=== PATIENT | male | born 1970 | race Asian ===

== ENCOUNTER 2021-07-17 10:43 | Outpatient (REF) | payer OTHER, SELFPAY ==
[2021-07-17 11:02] LABS: MANUAL DIFF FLAG NO
[2021-07-17 11:18] LABS: Basophils Percent Auto 0.7 % (0-2); Eosinophils Absolute Auto 0.2 X10*3/uL (0.0-0.4); Eosinophils Percent Auto 3.9 % (0-4); Hematocrit 45.1 % (42-52); Hemoglobin 15.4 g/dl (14.0-18.0); Imm Gran Abs Auto 0.02 X10*3/uL (0.00-0.03); Imm Gran Pct Auto 0.4 % (0.0-0.4); Lymphocytes Absolute Auto 1.8 X10*3/uL (1.2-4.9); Lymphocytes Percent Auto 33.9 % (20-40); Mean Corpuscular HGB Conc 34.1 g/dl (31.0-36.0); Mean Corpuscular Hemoglobin 29.7 pg (27.0-33.0); Mean Corpuscular Volume 87.1 fL (80-98); Mean Platelet Volume 10.8 fL (9.4-12.4); Monocytes Absolute Auto 0.5 X10*3/uL (0.1-1.2); Monocytes Percent Auto 9.7 % (2-11); Neutrophils Absolute Auto 2.8 X10*3/uL (2.0-8.3); Neutrophils Percent Auto 51.4 % (45-73); Platelet Count 243 X10*3/uL (160-400); Red Blood Count 5.18 X10*6/uL (4.60-5.80); Red Cell Distribution Width 12.9 % (11.0-16.0); White Blood Count 5.4 X10*3/uL (4.8-10.8)
[2021-07-17 11:41] LABS: Estimated Average Glucose 108 mg/dL; Hemoglobin A1c % 5.4 %
[2021-07-17 12:18] LABS: Alanine Aminotransferase 24 U/L (0-40); Alkaline Phosphatase 61 U/L (39-117); Anion Gap 11 (12-20); Aspartate Amino Transferase 18 U/L (5-37); Bilirubin Total 0.6 mg/dL (0.0-1.0); Blood Urea Nitrogen 11 mg/dL (9-16); Carbon Dioxide 25 mmol/L (22-29); Chloride 108 mmol/L (96-108); Cholesterol 171 mg/dL; Estimated Glomerular Filt Rate > 60; Glucose Random 95 mg/dL (60-115); HDL Cholesterol 45 mg/dL; LDL Cholesterol Calculated 99 mg/dl; Potassium 4.7 mmol/L (3.3-5.1); Sodium 139 mmol/L (135-145); Total Protein 6.6 g/dL (6.5-8.0); Triglycerides 135 mg/dL
[2021-07-17 12:25] LABS: Free T4 (Free Thyroxine) 0.86 ng/dL (0.71-1.85); Thyroid Stimulating Hormone 1.72 uIU/mL (0.32-4.0)
[2021-07-17 12:46] LABS: Vitamin B12 363 pg/mL (200-900)
== END 2021-07-17 10:44 | disposition home or self-care (01) ==
LOC: HO.LAB 10:43
PROVIDERS: PCP Internal Medicine; Visit Provider Internal Medicine
DX: Z12.5 Encounter for screening for malignant neoplasm of prostate (principal); E66.9 Obesity, unspecified; E78.00 Pure hypercholesterolemia, unspecified
CPT/HCPCS: 36415; 80053; 80061; 82607; 82746; 83036; 84153; 84439; 84443; 85025

== ENCOUNTER → 2021-10-31 09:03 | Outpatient (BNVA) | payer OTHER, SELFPAY | PROVIDERS: PCP Internal Medicine; Referring Provider Internal Medicine; Visit Provider Nurse Practitioner Family | DX: Z12.11 Encounter for screening for malignant neoplasm of colon (principal) | CPT/HCPCS: 99202 ==

== ENCOUNTER 2022-01-16 09:57 | Day surgery (SDC) | payer OTHER, SELFPAY ==
[2022-01-10 10:24] VITALS: BMI 29.2
--- NOTE | 2022-01-15 08:59 | HO.ANESPROP2 ---
Documented by User: Yola Caal NP 01/15/22 09:00 HPI - Anesthesia Eval Consult details Narrative: 51yo M for Colonoscopy PMFSH Active Problems Active Problems: All Active Problems (Updated 10/07/21 @ 10:52 by Alejo Pineda MD) Impaired glucose tolerance (Acute) Overweight (BMI 25.0-29.9) (Acute) Lipoma (Acute) Varicose veins of bilateral lower extremities with other complications (Acute) Colon cancer screening (Acute) Annual physical exam (Acute) Past Medical History Medical History Obesity (BMI 30.0-34.9) Right knee pain Family History Family History Paternal Uncle Myocardial infarct Surgical History Surgical History Collar bone fracture History of surgery Social History Social History Housing: House Patient Tobacco Use Status: Never used Tobacco e-Cigarette/Vaping Use: Never Used Second Hand Smoke Exposure: No Use of substances other than those prescribed or required for medical reasons: No Are you DNR?: No Advance Directives: No Advance Directives Information Provided: Yes Current occupational status: employed Meds Allergies Allergy/AdvReac Type Severity Reaction Status Date / Time No Known Allergies Allergy Verified 01/15/22 12:24 Home Medications Medication Instructions Recorded Confirmed Last Taken Type stothxvi-zyi-oytym acid 300 1 tab PO DAILY 07/05/21 01/10/22 Unknown History mcg-lycopene 600 mcg-lutein 300 mcg tablet (Centrum Silver Men) Exam Exam Date and Time: January 15, 2022 0859 Height,Weight and Vital Signs: Height 5 ft 8 in Weight 87.09 kg Assessment and Plan Assessment Anesthesia Assessment: Chart Reviewed Documented by User: Yen Starkey MD 01/16/22 10:46 [facility] Past Medical History Medical History Obesity (BMI 30.0-34.9) Right knee pain Family History Family History Paternal Uncle Myocardial infarct Family history of problems with anesthesia: No Surgical History Surgical History Collar bone fracture History of surgery History of Problems with Anesthesia: No Social History Social History Housing: House Patient Tobacco Use Status: Never used Tobacco e-Cigarette/Vaping Use: Never Used Second Hand Smoke Exposure: No Use of substances other than those prescribed or required for medical reasons: No Are you DNR?: No Advance Directives: No Advance Directives Information Provided: Yes Current occupational status: employed Meds Allergies Allergy/AdvReac Type Severity Reaction Status Date / Time No Known Allergies Allergy Verified 01/15/22 12:24 Home Medications Medication Instructions Recorded Confirmed Last Taken Type yvdaijvz-stw-lsupi acid 300 1 tab PO DAILY 07/05/21 01/10/22 Unknown History mcg-lycopene 600 mcg-lutein 300 mcg tablet (Centrum Silver Men) Exam Airway Mallampati Class: II TM Dist: >3cm Neck ROM: Full Assessment and Plan Assessment Anesthesia Assessment: Anesthesia Plan Discussed Final Anesthetic Review Family History of Problems with Anesthesia: No History of Problems with Anesthesia: No NPO: Yes ASA Class: II Final Preanesthetic Review: No Changes in Pt Med Stat, Meds/Allgs Chart Reviewed, Consent Obtained/Reviewed and Anes Risks/Benef Reviewed Patient Risk: Low Procedure Risk: Low Anesthetic Plan Anesthetic Plan: MAC: Disposition: Standard PACU
[2022-01-16 10:29] VITALS: BMI 28.8
[2022-01-16 10:34] VITALS: BP 116/71; PULSE 54; RESP 16; TEMP 36.3; O2SAT 99
--- NOTE | 2022-01-16 10:36 | MHC.SHP ---
Pre-Procedural Eval Section A Date of Service: 01/16/22 Section B Chief Complaint: screening Relevant Family History (Specify if Yes): No Relevant Social History: None Present Medications: see Short Stay Collaborative assessment Medical History: Significant History (Obesity (BMI 30.0-34.9) Right knee pain) History of Previous Operations: Relevant previous surgery/procedure and date(s) (collar bone ) Allergies: Allergies Allergy/AdvReac Type Severity Reaction Status Date / Time No Known Allergies Allergy Verified 01/15/22 12:24 Review of Systems Sugical H&P ROS: Negative: Constitution, Cardiovascular, Respiratory, Neurological, Psychiatric, Hem-Onc, Allergic/Immunologic, Gastrointestinal, Genitourinary, Musculoskeletal, Integumentary, Endocrine and Eyes/Ears/Nose/Throat Exam Surgical H&P Exam: Normal: HEENT, Normal: Heart, Normal: Lungs, Normal: Extremities, Normal: Abdomen, Normal: Skin and Normal: Neurological Plan Diagnosis/Plan: Unchanged I have reviewed the history and physical and performed a pertinent physical examination on my patient. No changes have occurred unless specified.
[2022-01-16] MEDS: Lactated Ringers 1,000 ML 100 ML IVCONT (10:37)
--- NOTE | 2022-01-16 11:05 | PM.OP ---
Brief Operative Note Date of Service: 01/16/22 Pre-op diagnosis: screening colonoscopy Post-op diagnosis: same Procedure: see op note Surgeon: Dez Conteh MD Anesthesia: MAC Was an Finance Lecturer used for this Procedure?: No Estimated blood loss (mL): 0 Condition: stable Disposition: PACU
--- NOTE | 2022-01-16 11:06 | W.PM.OPN ---
Operative Note Operative Note Date of Service: 01/16/22 Narrative: Operative Information Procedure Description: Colonoscopy Indication: screening colonoscopy Anesthesia: MAC COLONOSCOPY Instrument: Olympus variable stiffness pediatric scope 190L Colonoscopy Monitoring: Vital signs and clinical assessment, continuous EKG monitoring, Pulse oximetry, Carbon Dioxide monitoring and blood pressure monitoring were done throughout the procedure. Colon withdrawal time was 8 minutes. Procedure: The patient was placed in the left lateral decubitis position and pre-procedure medications were administered. After a digital rectal examination of the ano-rectum, the video colonoscope was inserted into the rectum and advanced through the colon to the cecum/TI. The colonoscope was slowly withdrawn in a retrograde panoramic fashion and the colon mucosa was carefully examined including a retroflexed view of the rectum. Findings and interventions are described below. Procedure Difficulty: easy Findings: Terminal Ileum-normal Cecum:normal Ascending Colon: normal Transverse Colon -normal Descending Colon:normal Sigmoid Colon: 8-10 mm sessile polyp removed with cold snare Rectum: Retroflexion with small internal hemorrhoids, grade I Anorectum - normal Colon preparation: [place] Bowel Preparation Scale Right colon; 2 Transverse colon: 3 Left colon; 2 (0 = Unprepared colon segment with mucosa not seen due to solid stool that cannot be cleared. 1 = Portion of mucosa of the colon segment seen, but other areas of the colon segment not well seen due to staining, residual stool and/or opaque liquid. 2 = Minor amount of residual staining, small fragments of stool and/or opaque liquid, but mucosa of colon segment seen well. 3 = Entire mucosa of colon segment seen well with no residual staining, small fragments of stool or opaque liquid) Impression and Post Procedure Diagnosis: polyp internal hemorrhoids Plan: High fiber diet leaflet Avoid straining at stool, epsom salts and sitz bath, anusol supps or cream Repeat Colonoscopy in 5 years if adenomatous, 10 yrs if hyperplastic or earlier if clinically indicated Above findings were reviewed with the patient and relevant handouts were provided if indicated.
[2022-01-16 11:12] VITALS: BP 103/55; PULSE 68; RESP 18; TEMP 36.1; O2SAT 100
[2022-01-16 11:27] VITALS: BP 105/64; PULSE 66; RESP 18; O2SAT 100
[2022-01-16 11:43] VITALS: BP 116/79; PULSE 51; RESP 16; TEMP 36.1; O2SAT 100
== END 2022-01-16 12:09 | disposition home or self-care (01) ==
PROVIDERS: PCP Internal Medicine; Visit Provider Internal Medicine Gastroenterology
PROC: 0DJD8ZZ Inspection of Lower Intestinal Tract, Via Natural or Artificial Opening Endoscopic (ICD-10-PCS; CPT 45378; principal; 2022-01-16 11:00)
DX: Z12.11 Encounter for screening for malignant neoplasm of colon (principal); D12.5 Benign neoplasm of sigmoid colon; K64.0 First degree hemorrhoids; E66.9 Obesity, unspecified; Z68.29 Body mass index [BMI] 29.0-29.9, adult; Z98.890 Other specified postprocedural states
CPT/HCPCS: 45385; 88305

== ENCOUNTER 2022-07-11 11:19 | Outpatient (REF) | payer OTHER, SELFPAY ==
--- NOTE | ~2022-07-11 | XR_ITS ---
EXAMINATION: XR KNEE, LEFT CLINICAL INFORMATION: Pain left knee. M25.562. COMPARISON: Standing AP bilateral knees 01/14/2018, left knee radiographs 06/17/2013. TECHNIQUE: Standing AP and lateral views of the left knee are obtained. FINDINGS: There is small to moderate suprapatellar effusion. Hoffa's fat pad appears normal. No fracture, dislocation, or destructive process. No focal joint narrowing or erosive change or chondrocalcinosis. XR/XR knee LT 2V IMPRESSION: -Small to moderate suprapatellar effusion. -No joint narrowing or erosive change. No fracture or dislocation.
[2022-07-11 11:54] LABS: MANUAL DIFF FLAG NO
[2022-07-11 12:55] LABS: Basophils Absolute Auto 0.1 X10*3/uL (0.0-0.2); Basophils Percent Auto 0.8 % (0-2); Eosinophils Absolute Auto 0.2 X10*3/uL (0.0-0.4); Eosinophils Percent Auto 2.8 % (0-4); Hematocrit 49.2 % (42.0-52.0); Hemoglobin 16.2 g/dl (14.0-18.0); Imm Gran Abs Auto 0.07 X10*3/uL (0.00-0.03); Imm Gran Pct Auto 1.2 % (0.0-0.4); Lymphocytes Absolute Auto 2.1 X10*3/uL (1.2-4.9); Lymphocytes Percent Auto 35.8 % (20-40); Mean Corpuscular HGB Conc 32.9 g/dl (31.0-36.0); Mean Corpuscular Hemoglobin 28.4 pg (27.0-33.0); Mean Corpuscular Volume 86.2 fL (80.0-98.0); Mean Platelet Volume 11.3 fL (9.4-12.4); Monocytes Absolute Auto 0.5 X10*3/uL (0.1-1.2); Monocytes Percent Auto 8.5 % (2-11); Neutrophils Percent Auto 50.9 % (45-73); Platelet Count 232 X10*3/uL (160-400); Red Blood Count 5.71 X10*6/uL (4.60-5.80); Red Cell Distribution Width 13.3 % (11.0-16.0)
[2022-07-11 13:27] LABS: Alanine Aminotransferase 26 U/L (0-40); Albumin Level 4.4 g/dL (3.5-5.0); Alkaline Phosphatase 72 U/L (39-117); Anion Gap 14 (12-20); Aspartate Amino Transferase 22 U/L (5-37); Bilirubin Total 0.4 mg/dL (0.0-1.0); Blood Urea Nitrogen 11 mg/dL (9-16); Calcium 9.3 mg/dL (8.4-10.2); Carbon Dioxide 28 mmol/L (22-29); Chloride 104 mmol/L (96-108); Cholesterol 188 mg/dL; Estimated Glomerular Filt Rate > 60; Glucose Random 90 mg/dL (60-115); HDL Cholesterol 57 mg/dL; LDL Cholesterol Calculated 111 mg/dl; Sodium 141 mmol/L (135-145); Total Protein 7.4 g/dL (6.5-8.0); Triglycerides 101 mg/dL
[2022-07-11 13:40] LABS: Thyroid Stimulating Hormone 1.36 uIU/mL (0.32-4.0)
[2022-07-11 13:56] LABS: Folate 16.4 ng/mL (> or = 4.0); Vitamin B12 480 pg/mL (200-900)
== END 2022-07-11 11:20 | disposition home or self-care (01) ==
LOC: HO.XRAY 11:19
PROVIDERS: PCP Internal Medicine; Visit Provider Internal Medicine
DX: M25.562 Pain in left knee (principal); R73.02 Impaired glucose tolerance (oral); E78.00 Pure hypercholesterolemia, unspecified
CPT/HCPCS: 36415; 73560; 80053; 80061; 82607; 82746; 84153; 84443; 85025

== ENCOUNTER → 2022-07-25 08:50 | Outpatient (BNVA) | payer OTHER, SELFPAY | PROVIDERS: PCP Internal Medicine; Visit Provider Surgery | DX: K42.9 Umbilical hernia without obstruction or gangrene (principal); Z72.0 Tobacco use | CPT/HCPCS: 99202 ==

== ENCOUNTER → 2022-08-06 13:12 | Outpatient (BNVA) | payer OTHER, SELFPAY | PROVIDERS: PCP Internal Medicine; Visit Provider Surgery | DX: K42.9 Umbilical hernia without obstruction or gangrene (principal); E66.3 Overweight; Z72.0 Tobacco use; R73.02 Impaired glucose tolerance (oral); Z68.30 Body mass index [BMI] 30.0-30.9, adult | CPT/HCPCS: 99212 ==

== ENCOUNTER 2022-09-04 07:31 | Day surgery (SDC) | payer OTHER, SELFPAY ==
[2022-08-27 13:26] VITALS: BMI 30.7
--- NOTE | 2022-09-03 09:39 | P.CONAN_ITS ---
Documented by User: Yola Caal NP 09/03/22 09:41 HPI - Anesthesia Eval Consult details Narrative: 52yo M for Hernia Repair Umbilical, possible mesh,possible umbilectomy s/p colo 01/2022 with MAC [facility] Active Problems Active Problems: All Active Problems (Updated 07/11/22 @ 11:00 by Alejo Pineda MD) Tinea pedis (Acute) Knee pain, left (Acute) Thrombophlebitis of leg (Acute) Umbilical hernia (Acute) Chews tobacco (Acute) Tubular adenoma of colon (Acute) Impaired glucose tolerance (Acute) Overweight (BMI 25.0-29.9) (Acute) Lipoma (Acute) Varicose veins of bilateral lower extremities with other complications (Acute) Annual physical exam (Acute) Past Medical History Medical History Colon cancer screening Obesity (BMI 30.0-34.9) Right knee pain Family History Family History Paternal Uncle Myocardial infarct Family history of problems with anesthesia: No Surgical History Surgical History Collar bone fracture History of surgery Hx of colonoscopy History of Problems with Anesthesia: No Social History Social History Housing: House Alcohol intake: current Patient Tobacco Use Status: Never used Tobacco Years Smoked: chews tobacco e-Cigarette/Vaping Use: Never Used Second Hand Smoke Exposure: No Use of substances other than those prescribed or required for medical reasons: No Are you DNR?: No Advance Directives: No Advance Directives Information Provided: Yes Current occupational status: employed Cognitive needs: No Hearing needs: No Vision needs: Yes Meds Allergies Allergy/AdvReac Type Severity Reaction Status Date / Time No Known Allergies Allergy Verified 08/27/22 12:51 Home Medications Medication Instructions Recorded Confirmed Last Taken Type spczvwat-dox-ceged acid 300 1 tab PO DAILY 07/05/21 08/27/22 Unknown History mcg-lycopene 600 mcg-lutein 300 mcg tablet (Centrum Silver Men) Exam Exam Date and Time: September 03, 2022 0939 Height,Weight and Vital Signs: Height 5 ft 8 in Weight 91.626 kg Pertinent Lab Results Pertinent Lab Results: Laboratory Tests 07/11/22 07/11/22 11:53 11:53 WBC 6.0 Hgb 16.2 Hct 49.2 Plt Count 232 Sodium 141 Potassium 5.0 Chloride 104 Carbon Dioxide 28 BUN 11 Creatinine 0.91 Assessment and Plan Assessment Anesthesia Assessment: Chart Reviewed Final Anesthetic Review Family History of Problems with Anesthesia: No History of Problems with Anesthesia: No Documented by User: Julia Agudelo MD 09/04/22 09:22 [facility] Past Medical History Medical History Colon cancer screening Obesity (BMI 30.0-34.9) Right knee pain Functional capacity: independent ambulation Family History Family History Paternal Uncle Myocardial infarct Surgical History Surgical History Collar bone fracture History of surgery Hx of colonoscopy Social History Social History Housing: House Alcohol intake: current Patient Tobacco Use Status: Never used Tobacco Years Smoked: chews tobacco e-Cigarette/Vaping Use: Never Used Second Hand Smoke Exposure: No Use of substances other than those prescribed or required for medical reasons: No Are you DNR?: No Advance Directives: No Advance Directives Information Provided: Yes Current occupational status: employed Cognitive needs: No Hearing needs: No Vision needs: Yes Meds Allergies Allergy/AdvReac Type Severity Reaction Status Date / Time No Known Allergies Allergy Verified 08/27/22 12:51 Home Medications Medication Instructions Recorded Confirmed Last Taken Type sbuvaspp-anc-vqktz acid 300 1 tab PO DAILY 07/05/21 08/27/22 Unknown History mcg-lycopene 600 mcg-lutein 300 mcg tablet (Centrum Silver Men) Exam Airway Mallampati Class: II TM Dist: >3cm Neck ROM: Full Assessment and Plan Assessment Anesthesia Assessment: Anesthesia Plan Discussed Final Anesthetic Review ASA Class: II Final Preanesthetic Review: No Changes in Pt Med Stat, Meds/Allgs Chart Reviewed and Consent Obtained/Reviewed Patient Risk: Low Procedure Risk: Intermediate Anesthetic Plan Anesthetic Plan: GA Disposition: Standard PACU
[2022-09-04] VITALS (7 sets, daily range): BP systolic 101–129; BP diastolic 72–89; PULSE 68–84; RESP 11–16; TEMP 35.9–36.3; O2SAT 96–98; BMI 27.5
[2022-09-04] MEDS: Lactated Ringers 1,000 ML 100 ML IVCONT (08:09)
--- NOTE | 2022-09-04 08:19 | MHC.SHP ---
Pre-Procedural Eval Section A Date of Service: 09/04/22 The patient is an INPATIENT: No The History & Physical has been completed within 30 days and I have reviewed it.: Yes Section B Chief Complaint: Umbilical hernia without obstruction or gangrene Allergies: Allergies Allergy/AdvReac Type Severity Reaction Status Date / Time No Known Allergies Allergy Verified 08/27/22 12:51 Plan I have reviewed the history and physical and performed a pertinent physical examination on my patient. No changes have occurred unless specified.
--- NOTE | 2022-09-04 09:13 | P.OP_ITS ---
Operative Note Operative Note Date of Service: 09/04/22 Narrative: Preop diagnosis: [Umbilical hernia] Postop diagnosis: [Same] Procedure: [Open umbilical hernia repair] Surgeon: Monty Amor MD Assist: [] Anesthesia: [general via LMA, local of Marcaine, 0.5% with epi] Estimated blood loss: [3cc] Specimen: [None] Intraoperative findings: [Viable properitoneal fat was demonstrated through a 2.5 cm umbilical ring that was closed primarily and onlay mesh of polypropylene completed the repair.] Indications: [The patient is a 52-year-old gentleman with a symptomatic umbilical hernia that is reducible. He works in a liquor store and since the hernia is symptomatic, we discussed the option of continued observation versus repair. He believes it to be significant enough that he wishes to have repair. Consequently, we discussed an open umbilical hernia repair, possibly with mesh and possible umbilectomy if the skin is attenuated and needs to be removed. I reviewed the inherent risks of bleeding, infection, hernia recurrence especially in the setting of weight gain, mesh complications that could require another procedure removal of the mesh, activity restrictions for a month after surgery, urinary retention and the patient seemed understand his options and wanted to proceed. The option of an oxygen equipment technician and his prairie band language was offered but declined by the patient. The patient seemed understand all of his options and postoperative restrictions and wanted to proceed. ] Procedure: [The patient was identified by myself in the preoperative holding area and again in the operating room. He was placed supine on the table, his abdominal hair had previously been clipped in day surgery, he was induced in general endotracheal anesthesia by LMA was performed. His abdomen was then widely prepped and draped using ChloraPrep. An appropriate time-out was per formed and preemptive local infiltrated into the skin and subcutaneous tissues. Next, a curvilinear infraumbilical incision was made sharply and dissection of the hernia was performed taking care to avoid trauma to the umbilical skin. The umbilical ring was approximately 2.5 cm in diameter and viable properitoneal fat was contained and reduced. Fascial margins were freshened and a primary closure performed with 0 polypropylene suture and polypropylene mesh repair with onlay technique was performed using 0 polypropylene sutures. After inspecting for hemostasis, additional local was infiltrated in the skin and subcutaneous tissues and the subcutaneous tissues were approximated with 3-0 Polysorb. Skin was closed with 4-0 Monocryl subcuticular sutures, the abdomen washed and dried, Mastisol and Steri-Strips applied. A cotton ball was placed in the umbilicus, and a Tegaderm was placed over the dressing. Patient tolerated the procedure well. At his request, I contacted his family member at [phone], but no one answered. A message stating that the procedure went well and that someone would be in touch within an hour to 90 minutes was left.]
== END 2022-09-04 12:32 | disposition home or self-care (01) ==
PROVIDERS: PCP Internal Medicine; Visit Provider Surgery
PROC: (CPT 49585; principal; 2022-09-04 09:10)
DX: K42.9 Umbilical hernia without obstruction or gangrene (principal); R73.02 Impaired glucose tolerance (oral); E66.3 Overweight; Z68.29 Body mass index [BMI] 29.0-29.9, adult; I83.12 Varicose veins of left lower extremity with inflammation; Z72.0 Tobacco use
CPT/HCPCS: 49585; 99212; C1781; J0690; J1100; J2250; J2405; J3010

== ENCOUNTER → 2022-10-10 09:25 | Outpatient (BNVA) | payer OTHER, SELFPAY | PROVIDERS: PCP Internal Medicine; Visit Provider Surgery | DX: Z13.89 Encounter for screening for other disorder (principal) ==

== ENCOUNTER 2022-10-17 10:32 | Outpatient (REF) | payer OTHER, SELFPAY ==
--- NOTE | ~2022-10-17 | US_ITS ---
EXAMINATION: US LOWER EXTREMITY VENOUS (REFLUX EXAM), BILATERAL CLINICAL INDICATION: Varicose vein COMPARISON: None. TECHNIQUE: Color flow triplex imaging and compression Doppler was performed to evaluate both the deep and the superficial systems bilaterally. To evaluate the superficial system, the examination was performed in the upright position. Color-flow Doppler ultrasound and compression ultrasound were utilized. In addition, maneuvers were utilized to demonstrate reflux. FINDINGS: 1. DEEP VENOUS ULTRASOUND OF THE RIGHT LOWER EXTREMITY: Common Femoral Vein: Compressible, normal respiratory variation and augmented flow. Femoral Vein: Compressible, normal color flow and augmentation. Popliteal Vein: Compressible, normal augmentation. Deep Reflux: There is no evidence of reflux in the deep system in either the common femoral vein or the popliteal vein. There is no evidence of a Quarles's cyst. 2. SUPERFICIAL ULTRASOUND WITH DOPPLER OF RIGHT LOWER EXTREMITY: GREAT SAPHENOUS VEIN: Saphenofemoral Junction: 0.9 cm; Reflux: 0 ms Proximal Thigh: 0.6 cm; Reflux: 0 ms Mid Thigh: 0.3 cm; Reflux: 0 ms Above Knee: 0.3 cm; Reflux: 0 ms At Knee: 0.3 cm; Reflux: 0 ms Below Knee: 0.3 cm; Reflux: 0 ms Mid Calf: 0.4 cm; Reflux: 0 ms Ankle: 0.4 cm; Reflux: 2016 ms DUPLICATED MEDIAL GREAT SAPHENOUS VEIN: Diameter: None Imaged Reflux: NA DUPLICATED LATERAL GREAT SAPHENOUS VEIN: Proximal: 0.3 cm; Reflux: 0 ms Distal: 0.2 cm; Reflux: 0 ms SMALL SAPHENOUS VEIN: Proximal: 0.2 cm; Reflux: 0 ms Distal: 0.3 cm; Reflux: 0 ms VEIN OF GIACOMINI: None Imaged. PERFORATORS: Location: Mid thigh Size: And proximal calf 0.2 cm Reflux: NA VARICOSITIES: Location: Proximal calf Size: 0.4 cm Reflux: 1236 3. DEEP VENOUS ULTRASOUND OF THE LEFT LOWER EXTREMITY: Common Femoral Vein: Compressible, normal respiratory variation and augmented flow. Femoral Vein: Compressible, normal color flow and augmentation. Popliteal Vein: Compressible, normal augmentation. Deep Reflux: There is no evidence of reflux in the deep system in either the common femoral vein or the popliteal vein. There is no evidence of a Quarles's cyst. 4. SUPERFICIAL ULTRASOUND WITH DOPPLER OF LEFT LOWER EXTREMITY: GREAT SAPHENOUS VEIN: Saphenofemoral Junction: 0.7 cm; Reflux: 0 ms Proximal Thigh: 0.6 cm; Reflux: 0 ms Mid Thigh: 0.5 cm; Reflux: 2932 ms Above Knee: 0.4 cm; Reflux: 0 ms At Knee: 0.5 cm; Reflux: 692 ms Below Knee: 0.5 cm; Reflux: 2024 ms Mid Calf: 0.4 cm; Reflux: 0 ms Ankle: 0.4 cm; Reflux: 0 ms DUPLICATED MEDIAL GREAT SAPHENOUS VEIN: Diameter: None Imaged Reflux: NA DUPLICATED LATERAL GREAT SAPHENOUS VEIN: Diameter: None Imaged Reflux: NA SMALL SAPHENOUS VEIN: Proximal: 0.3 cm; Reflux: 0 ms Distal: 0.2 cm; Reflux: 0 ms VEIN OF GIACOMINI: None Imaged. PERFORATORS: Location: Mid SSV, midcalf Size: 0.2-0.3 cm Reflux: 3268 VARICOSITIES: Location: Multiple varicosities in the mid thigh and at the knee Size: 0.3-0.4 cm Reflux: 2808-7015 US/US venous duplex LE BI IMPRESSION: 1. No evidence of DVT. 2. Segmental reflux in the left great saphenous vein. 3. Bilateral refluxing varicosities.
== END 2022-10-17 10:33 | disposition home or self-care (01) ==
LOC: HO.US 10:32
PROVIDERS: PCP Internal Medicine; Visit Provider Surgery Vascular Surgery
DX: I83.12 Varicose veins of left lower extremity with inflammation (principal)
CPT/HCPCS: 93970

== ENCOUNTER → 2022-11-04 09:04 | Outpatient (BNVA) | payer OTHER, SELFPAY | PROVIDERS: PCP Internal Medicine; Visit Provider Surgery Vascular Surgery | DX: I83.12 Varicose veins of left lower extremity with inflammation (principal) | CPT/HCPCS: 99212 ==

== ENCOUNTER → 2023-03-13 12:19 | Outpatient (BNVA) | payer OTHER, SELFPAY | PROVIDERS: PCP Internal Medicine; Visit Provider Surgery Vascular Surgery | DX: I83.12 Varicose veins of left lower extremity with inflammation (principal) | CPT/HCPCS: 36482 ==

== ENCOUNTER 2023-03-16 15:59 | Outpatient (REF) | payer OTHER, SELFPAY ==
--- NOTE | ~2023-03-16 | US_ITS ---
EXAMINATION: US VENOUS ULTRASOUND WITH DOPPLER LOWER EXTREMITY, LEFT CLINICAL INFORMATION: Pain. History of left greater saphenous vein vena seal 03/13/2023 COMPARISON: Previous exam October 2022 TECHNIQUE: Ultrasound of the deep veins is performed from the hip to the calf with compression sonography and color and pulse Doppler assessment. Spectral analysis with color-flow imaging is performed. FINDINGS: There is echogenic material seen in the left greater saphenous vein post vena seal. This extends to 3 cm from the saphenofemoral junction. The left greater saphenous vein is closed. There is normal venous compression and respiratory variation and augmented flow. The visualized common femoral vein, superficial femoral vein, profunda femoral vein, popliteal vein, and the trifurcation region shows no evidence of deep venous thrombosis. There is no significant popliteal fossa cyst. US/US venous duplex LE IMPRESSION: No DVT demonstrated in the left lower extremity.
== END 2023-03-16 16:00 | disposition home or self-care (01) ==
LOC: HO.US 15:59
PROVIDERS: PCP Internal Medicine; Visit Provider Surgery Vascular Surgery
DX: M79.605 Pain in left leg (principal)
CPT/HCPCS: 93971

== ENCOUNTER → 2023-03-30 09:00 | Outpatient (BNVA) | payer OTHER, SELFPAY | PROVIDERS: PCP Internal Medicine; Visit Provider Surgery Vascular Surgery | DX: I83.12 Varicose veins of left lower extremity with inflammation (principal); Z98.890 Other specified postprocedural states | CPT/HCPCS: 99212 ==

== ENCOUNTER 2023-07-15 13:37 | Outpatient (AMB) | payer OTHER, SELFPAY ==
[2023-07-15 14:06] VITALS: BP 124/70; PULSE 68; O2SAT 98; BMI 30.1
--- NOTE | 2023-07-15 14:06 | MHC.PC.OV ---
Vital Signs 07/15/23 14:06 Height 5 ft 8 in Weight 89.811 kg BMI 30.1 BP 124/70 Blood Pressure Location Lt brachial Position Sitting Pulse 68 Pulse Source Pulse Oximeter Pulse Oximetry (%) 98 Oxygen Delivery Method Room Air Intake Visit Reasons: Annual Exam Allergies No Known Allergies Allergy (Verified 07/15/23 14:07) Medication List - Last Reconciled 07/15/23 by Alejo Pindea MD ibuprofen (Advil) 200 mg PO Q6H PRN [id number] mcg (Centrum Silver Men) 1 tab PO DAILY Tobacco use date assessed: 07/15/23 Dental Screening Dental Screen Date: 07/15/23 Did you have a dental visit in the last 12 months?: No Did you have a dental problem in the last 6 months where you did not have access to dental care?: No Was dental information given to patient?: Patient has dentist HPI Annual Exam HPI Details 52-year-old obese male with impaired glucose tolerance umbilical hernia coming in for physical exam. Last seen in July 2022. Colonoscopy up-to-date January 2022 with tubular adenoma. Review of the notes has seen the vascular surgeon for the peripheral vascular disease had left GSV venous seal March 2023. Patient also had umbilical hernia repair September 2022 [facility] Medical History (Updated 07/15/23 @ 14:29 by Alejo Pineda MD) Obesity (BMI 30.0-34.9) Colon cancer screening Right knee pain Surgical History Hx of colonoscopy Collar bone fracture History of surgery Family History (Updated 07/15/23 @ 14:07 by Cori Petit CMA) Paternal Uncle Myocardial infarct Social History (Updated 07/15/23 @ 14:27 by Alejo Pineda MD) Housing: House Alcohol intake: current Patient Tobacco Use Status: Never used Tobacco Years Smoked: chews tobacco e-Cigarette/Vaping Use: Never Used Second Hand Smoke Exposure: No Current occupational status: employed Cognitive needs: No Hearing needs: No Vision needs: Yes Questionnaire PHQ-9 Over the last 2 weeks, how often have you been bothered by any of the following problems? 1. Little interest or pleasure in doing things: not at all 2. Feeling down, depressed, or hopeless: not at all 3. Trouble falling or staying asleep, or sleeping too much: not at all 4. Feeling tired or having little energy: not at all 5. Poor appetite or overeating: not at all 6. Feeling bad about yourself - or that you are a failure or have let yourself or your family down: not at all 7. Trouble concentrating on things, such as reading the newspaper or watching television: not at all 8. Moving or speaking so slowly that other people could have noticed. Or the opposite - being so fidgety or restless that you have been moving around a lot more than usual: not at all 9. Thoughts that you would be better off or of hurting yourself in some way: not at all Total score: 0 Depression Screening Interpretation: Negative Depression Screening Done: Yes Source: Developed by Drs. Salas Quintero, Victoria Israel, Alhaji Espinoza and colleagues, with an educational mathieu from [employer]. Thrive Questionnaire Date Thrive assessed: 07/15/23 I am a: Patient What is your living situation today?: I have a steady place to live Within the past 12 months, did the food you bought not last and you didn't have the money to get more?: Never true Within the past 12 months, did you worry whether your food would run out before you got money to buy more?: Never true Do you have trouble paying for medicines?: No Do you have trouble getting transportation to medical appointments?: No Do you have trouble paying your heating and electricity bill?: No Do you have trouble taking care of your child, family member or friend?: No Do you have trouble with day-to-day activities such as bathing, preparing meals, shopping, managing finances, etc.?: No Are you currently unemployed and looking for a job?: No Are you interested in more education?: No Currently or been in a relationship where the following occur: no concerns reported AUDIT C Alcohol Use Questionnaire (AUDIT-C) 1. How often do you have a drink containing alcohol?: 4 or more times a week 2. How many drinks containing alcohol do you have on a typical day when you are drinking?: 3 or 4 3. How often do you have six or more drinks on one occasion?: Less than monthly Total Score: 6 TALA-7 AMB Questionnaire TALA-7 Date TALA - 7 assessed: 07/15/23 Feeling nervous, anxious, or on edge: 0 = Not at all Not being able to stop or control worryin = Not at all Worrying too much about different things: 0 = Not at all Trouble relaxin = Not at all Being so restless that it is hard to sit still: 0 = Not at all Becoming easily annoyed or irritable: 0 = Not at all Feeling afraid as if something awful might happen: 0 = Not at all Total TALA-7 score (0-4 normal; 5-9 mild; 10-14 moderate; 15-21 severe): 0 Source: Developed by Drs. Salas Quintero, Victoria Israel, Alhaji Espinoza and colleagues, with an educational mathieu from [employer]. Review of Systems Const Denies poor appetite and Denies weakness Eyes Denies no additional complaints ENT Reports Normal hearing present, Denies dizziness, Denies nasal congestion, Denies tinnitus and Denies sore throat Card Denies chest pain, Denies syncope, Denies rapid heart rate and Denies dyspnea Resp Denies cough and Denies dyspnea GI Denies change in stool character, Reports constipation, Denies diarrhea, Denies nausea and Denies vomiting Denies dysuria and Denies urinary frequency Neuro Reports Normal hearing present, Denies confusion, Denies dizziness, Denies syncope and Denies weakness Psych Denies confusion Physical exam (Primary Care) Vital Signs: Last Vital Signs Pulse 68 07/15/23 14:06 BP 124/70 07/15/23 14:06 Pulse Ox 98 07/15/23 14:06 Oxygen Delivery Method Room Air 07/15/23 14:06 BMI result Body Mass Index 30.1 Tobacco/Smoking Status: Tobacco use Status Tobacco use date assessed 07/15/23 07/15/23 14:12 Patient Tobacco Use Status Never used Tobacco 07/15/23 14:27 e-Cigarette/Vaping Use Never Used 07/15/23 14:27 PHQ-9: PHQ-9 Score PHQ-9: Total score 0 07/15/23 14:29 Depression Screening Interpretation: Negative Thrive Assessment: Date of Thrive Assessment Date Thrive assessed 07/15/23 07/15/23 14:12 Currently or been in a relationship where the following occur: no concerns reported Const General: No confusion Orientation/consciousness: No confusion HENMT Head: Yes normocephalic Ears: external ears normal and TM's normal bilaterally Face and sinus: Yes normal facial exam Mouth: moist mucous membranes Throat: Yes tonsils normal Eyes Conjunctivae: conjunctivae normal Pupils: Equal, round and reactive pupils present and Pupil accommodation reflex normal Direct Ophthalmoscopy: normal light reflex Neck Neck: No lymphadenopathy Thyroid: Thyroid normal Chest Chest palpation & inspection: normal inspection of the chest Resp Effort & Inspection: normal respiratory effort and no audible wheezes Auscultation: clear to auscultation bilaterally, no crackles, no wheezes and lung sounds not diminished Cardio Rate: regular rate Rhythm: regular rhythm Peripheral pulses: radial pulses present and dorsalis pedis present GI Palpation (GI): no masses Auscultation: normal bowel sounds and normoactive bowel sounds Rectal Exam - Male: Yes deferred Skin General skin exam: no rashes or lesions noted Rashes: no rashes Neuro General: No confusion Cranial nerves: Yes Equal, round and reactive pupils present and Yes Normal hearing present Cognition (Neuro): normal cognition Gait exam (Neuro): Normal gait present Motor exam (neuro): 5/5 motor strength present throughout Deep tendon reflexes (DTR's): Right brachioradialis reflex intensity grade: 2+, Left brachioradialis reflex intensity grade: 2+, Right patellar reflex intensity grade: 2+ and Left patellar reflex intensity grade: 2+ Extrem General: No edema Office Procedures Flu Questionnaire Does the patient have a severe egg allergy?: No Does the patient have severe life threatening allergies?: No Does the patient have a fever or illness today?: No Has the patient ever had Guillain-[place] Syndrome?: No Has the patient ever had any past reaction to a flu shot?: No Immunizations flu vacc [id number] 6mos up(PF) 60 mcg(15 mcgx4)/0.5 mL IM syringe Performing Provider: Alejo Pineda MD Performing Location: [facility] [place] [facility] Administered by: Cori Petit CMA on 07/15/23 14:40 Dose Route Admin Location Dispensed Lot Number Expiration Date NDC Customer Service Receptionist 0.5 mL IM Left Deltoid 0.5 mL [id number] 04/03/24 [id number] [employer] VIS Given Date VIS Provided VIS Publication Date 07/15/23 Single Vaccine 21 Eligibility Eligibility Date Funding Source Not [facility] Eligible 07/15/23 Private Assessment and Plan Assessment & Plan (1) Annual physical exam: Code(s): Z00.00 - Encounter for general adult medical examination without abnormal findings (2) Varicose veins of left lower extremity with inflammation: Comment: 03/13/2023 left great saphenous vein Cyanoacralate ablation Code(s): I83.12 - Varicose veins of left lower extremity with inflammation Plan: Patient follows up with vascular surgeon status postvenaseal (3) Umbilical hernia: Comment: Open umbilical hernia repair Augustr. Walko Code(s): K42.9 - Umbilical hernia without obstruction or gangrene Plan: Status post repair under surgery August 2022 (4) Chews tobacco: Code(s): Z72.0 - Tobacco use Plan: Patient is strongly advised to stop (5) Tubular adenoma of colon: Comment: January 2022 tubular adenoma Code(s): D12.6 - Benign neoplasm of colon, unspecified Plan: Patient follows up with Gastroenterology (6) Impaired glucose tolerance: Code(s): R73.02 - Impaired glucose tolerance (oral) Plan: Decrease the amount of carbohydrate intake, pasta, bread, rice and potatoes are all sugar and that is aside from all the sweet stuff, remember that fruits are good but they are Sweet also. (7) Obesity (BMI 30.0-34.9): Code(s): E66.9 - Obesity, unspecified Plan: Discussed about diet and exercise (8) Dysphagia: Code(s): R13.10 - Dysphagia, unspecified (9) Low back pain: Code(s): M54.50 - Low back pain, unspecified Orders: Orders Complete Blood Count Auto Diff Today R73.02 - Impaired glucose tolerance (oral) Free T4 (Free Thyroxine) Today R73.02 - Impaired glucose tolerance (oral) Prostate Specific Antigen Scr Today R73.02 - Impaired glucose tolerance (oral) XR lumbar spine 2-3V Today M54.50 - Low back pain, unspecified [place] upper GI w Ba Swallow Today R13.10 - Dysphagia, unspecified Influenza Immunization Today Z23 - Encounter for immunization Comprehensive Met. Panel Today R73.02 - Impaired glucose tolerance (oral) Hemoglobin A1c Today R73.02 - Impaired glucose tolerance (oral) Thyroid Stimulating Hormone Today R73.02 - Impaired glucose tolerance (oral) Vitamin B12 and Folate Today R73.02 - Impaired glucose tolerance (oral) Lipid Panel Today E78.00 - Pure hypercholesterolemia, unspecified, R73.02 - Impaired glucose tolerance (oral) Coding Level of Care Code Est Pt Prev Care 40-64y(25581) Diagnoses Annual physical exam Z00.00 Varicose veins of left lower extremity with inflammation I83.12 Umbilical hernia K42.9 Chews tobacco Z72.0 Tubular adenoma of colon D12.6 Impaired glucose tolerance R73.02 Obesity (BMI 30.0-34.9) E66.9 Dysphagia R13.10 Low back pain M54.50
== END 2023-07-15 14:45 | disposition home or self-care (01) ==
PROVIDERS: Visit Provider Internal Medicine
DX: Z00.00 Encounter for general adult medical examination without abnormal findings (principal); I83.12 Varicose veins of left lower extremity with inflammation; K42.9 Umbilical hernia without obstruction or gangrene; Z23 Encounter for immunization; Z72.0 Tobacco use; D12.6 Benign neoplasm of colon, unspecified; R73.02 Impaired glucose tolerance (oral); E66.9 Obesity, unspecified; R13.10 Dysphagia, unspecified; M54.50 Low back pain, unspecified
CPT/HCPCS: 90471; 90686; 99396

== ENCOUNTER 2023-07-21 08:51 | Outpatient (REF) | payer OTHER, SELFPAY ==
--- NOTE | ~2023-07-21 | XR_ITS ---
EXAMINATION: XR LUMBOSACRAL SPINE CLINICAL INFORMATION: Low back pain unspecified COMPARISON: 08/10/2017 TECHNIQUE: Three views of the lumbosacral spine. FINDINGS: Slight rightward curvature of the lumbar spine. Mild multilevel lumbar spondylosis with hypertrophic change. Lumbar disc space heights are essentially preserved. Mild facet arthritis in the lower lumbar spine. XR/XR lumbar spine 2-3V IMPRESSION: Mild multilevel lumbar spondylosis.
[2023-07-21 09:10] LABS: MANUAL DIFF FLAG NO
[2023-07-21 09:59] LABS: Basophils Absolute Auto 0.1 X10*3/uL (0.0-0.2); Basophils Percent Auto 0.9 % (0-2); Eosinophils Absolute Auto 0.2 X10*3/uL (0.0-0.4); Eosinophils Percent Auto 3.8 % (0-4); Hematocrit 43.7 % (42.0-52.0); Hemoglobin 14.2 g/dl (14.0-18.0); Imm Gran Abs Auto 0.03 X10*3/uL (0.00-0.03); Imm Gran Pct Auto 0.5 % (0.0-0.4); Lymphocytes Absolute Auto 1.6 X10*3/uL (1.2-4.9); Mean Corpuscular HGB Conc 32.5 g/dl (31.0-36.0); Mean Corpuscular Hemoglobin 28.6 pg (27.0-33.0); Mean Corpuscular Volume 87.9 fL (80.0-98.0); Mean Platelet Volume 11.1 fL (9.4-12.4); Monocytes Absolute Auto 0.7 X10*3/uL (0.1-1.2); Monocytes Percent Auto 11.1 % (2-11); Neutrophils Absolute Auto 3.3 x10*3/uL (2.0-8.3); Neutrophils Percent Auto 56.7 % (45-73); Platelet Count 234 X10*3/uL (160-400); Red Blood Count 4.97 X10*6/uL (4.60-5.80); Red Cell Distribution Width 13.1 % (11.0-16.0); White Blood Count 5.9 X10*3/uL (4.8-10.8)
[2023-07-21 10:54] LABS: Alanine Aminotransferase 20 U/L (0-40); Albumin Level 3.8 g/dL (3.5-5.0); Alkaline Phosphatase 66 U/L (39-117); Anion Gap 11 (12-20); Aspartate Amino Transferase 23 U/L (5-37); Bilirubin Total 0.3 mg/dL (0.0-1.0); Blood Urea Nitrogen 14 mg/dL (9-16); Calcium 8.4 mg/dL (8.4-10.2); Carbon Dioxide 23 mmol/L (22-29); Chloride 109 mmol/L (96-108); Cholesterol 157 mg/dL (<200); Estimated Glomerular Filt Rate > 60; Glucose Random 119 mg/dL (60-115); HDL Cholesterol 47 mg/dL (>40); LDL Cholesterol Calculated 81 mg/dL (<100); Potassium 4.2 mmol/L (3.3-5.1); Sodium 139 mmol/L (135-145); Total Protein 6.5 g/dL (6.5-8.0); Triglycerides 148 mg/dL (<150)
[2023-07-21 10:55] LABS: Estimated Average Glucose 108 mg/dL; Hemoglobin A1c % 5.4 % (<6.0)
[2023-07-21 11:03] LABS: Free T4 (Free Thyroxine) 0.88 ng/dL (0.71-1.85); Thyroid Stimulating Hormone 1.51 uIU/mL (0.32-4.0)
[2023-07-21 11:08] LABS: Folate 14.8 ng/mL (> or = 4.0); Prostate Specific Antigen Scr 0.42 ng/mL (<0.05-4.0); Vitamin B12 538 pg/mL (200-900)
== END 2023-07-21 08:52 | disposition home or self-care (01) ==
LOC: HO.LAB 08:51
PROVIDERS: PCP Internal Medicine; Visit Provider Internal Medicine
DX: M54.50 Low back pain, unspecified (principal); R73.02 Impaired glucose tolerance (oral); E78.00 Pure hypercholesterolemia, unspecified
CPT/HCPCS: 36415; 72100; 80053; 80061; 82607; 82746; 83036; 84153; 84439; 84443; 85025

== ENCOUNTER 2023-09-23 09:07 | Outpatient (REF) | payer OTHER, SELFPAY | END 2023-09-23 09:08 | disposition home or self-care (01) | LOC: HO.XRAY 09:07 | PROVIDERS: PCP Internal Medicine; Visit Provider Internal Medicine | DX: Z13.89 Encounter for screening for other disorder (principal) ==

== ENCOUNTER 2024-07-18 09:13 | Outpatient (AMB) | payer OTHER, SELFPAY ==
--- NOTE | 2024-07-18 09:15 | A.OFFPC_ITS ---
Vital Signs 3 07/18/24 09:16 Height 5 ft 8 in Weight 197 lb 4 oz BMI 30.0 BP 120/78 Blood Pressure Location Lt brachial Position Sitting Pulse 66 Pulse Source Pulse Oximeter Pulse Oximetry (%) 99 Oxygen Delivery Method Room Air Intake Visit Reasons: Annual Exam Intake Note: Patient is here today for a physical. Jukebox Checker Required: No Director Chemistry: Not Required per policy Accompanied by: Self / Same As Patient Allergies No Known Allergies Allergy (Verified 07/18/24 09:16) Medication List - Last Reconciled 07/18/24 by Alejo Pineda MD ibuprofen (Advil) 200 mg PO Q6H PRN [id number] [id number] mcg (Centrum Silver Men) 1 tab PO DAILY Tobacco use date assessed: 07/18/24 Dental Screening Dental Screen Date: 07/18/24 Did you have a dental visit in the last 12 months?: No Did you have a dental problem in the last 6 months where you did not have access to dental care?: No Was dental information given to patient?: Patient has dentist HPI Annual Exam 2 HPI0 Details 54-year-old obese male who chews tobacco with peripheral vascular disease, impaired glucose tolerance coming in for physical exam last seen last year. Patient's last colonoscopy was done in 01/22/2022 having tubular adenoma. At that time had some dysphagia and a barium swallow requested but not done. Had some low back pain x-ray done showing mild multilevel lumbar spondylosis. states feverish last night took advil. has a rash on the L anterior leg- seen derma but will need notes PFSH Medical History (Updated 07/18/24 @ 19:05 by Alejo Pineda MD) Obesity (BMI 30.0-34.9) Colon cancer screening Right knee pain Surgical History Hx of colonoscopy Collar bone fracture History of surgery Family History Paternal Uncle Myocardial infarct Social History (Updated 07/18/24 @ 09:26 by Alejo Pineda MD) Housing: House Alcohol intake: current Comment: QD 3-4 drinks a day Patient Tobacco Use Status: Current everyday Tobacco user (chewing tobacco) Years Smoked: chews tobacco e-Cigarette/Vaping Use: Never Used Second Hand Smoke Exposure: No service: No Current occupational status: employed Cognitive needs: No Hearing needs: No Vision needs: Yes Questionnaire PHQ-9 Over the last 2 weeks, how often have you been bothered by any of the following problems? 1. Little interest or pleasure in doing things: several days 2. Feeling down, depressed, or hopeless: not at all 3. Trouble falling or staying asleep, or sleeping too much: not at all 4. Feeling tired or having little energy: not at all 5. Poor appetite or overeating: not at all 6. Feeling bad about yourself - or that you are a failure or have let yourself or your family down: not at all 7. Trouble concentrating on things, such as reading the newspaper or watching television: not at all 8. Moving or speaking so slowly that other people could have noticed. Or the opposite - being so fidgety or restless that you have been moving around a lot more than usual: not at all 9. Thoughts that you would be better off or of hurting yourself in some way: not at all Total score: 1 Depression Screening Interpretation: Positive Depression Screening Done: Yes Source: Developed by Drs. Salas Quintero, Victoria Israel, Alhaji Espinoza and colleagues, with an educational mathieu from [employer]. Thrive Questionnaire Date Thrive assessed: 07/18/24 I am a: Patient What is your living situation today?: I have a steady place to live Within the past 12 months, did the food you bought not last and you didn't have the money to get more?: Never true Within the past 12 months, did you worry whether your food would run out before you got money to buy more?: Never true Do you have trouble paying for medicines?: No Do you have trouble getting transportation to medical appointments?: No Do you have trouble paying your heating and electricity bill?: No Do you have trouble taking care of your child, family member or friend?: No Do you have trouble with day-to-day activities such as bathing, preparing meals, shopping, managing finances, etc.?: No Are you currently unemployed and looking for a job?: No Are you interested in more education?: No Please select the resources that you would like help with: None Currently or been in a relationship where the following occur: No concerns reported THRIVE Score: 0 AUDIT C Alcohol Use Questionnaire (AUDIT-C) 1. How often do you have a drink containing alcohol?: 4 or more times a week 2. How many drinks containing alcohol do you have on a typical day when you are drinking?: 3 or 4 3. How often do you have six or more drinks on one occasion?: Daily or almost daily Total Score: 9 TALA-7 AMB Questionnaire TALA-7 Date TALA - 7 assessed: 07/18/24 Feeling nervous, anxious, or on edge: 0 = Not at all Not being able to stop or control worryin = Not at all Worrying too much about different things: 0 = Not at all Trouble relaxin = Not at all Being so restless that it is hard to sit still: 0 = Not at all Becoming easily annoyed or irritable: 0 = Not at all Feeling afraid as if something awful might happen: 0 = Not at all Total TALA-7 score (0-4 normal; 5-9 mild; 10-14 moderate; 15-21 severe): 0 Source: Developed by Drs. Salas Quintero, Victoria Israel, Alhaji Espinoza and colleagues, with an educational mathieu from [employer]. Review of Systems Const Denies poor appetite and Denies weakness Eyes Denies no additional complaints ENT Reports Normal hearing present, Denies dizziness, Denies nasal congestion, Denies tinnitus and Denies sore throat Card Denies chest pain, Denies syncope, Denies rapid heart rate and Denies dyspnea Resp Denies cough and Denies dyspnea GI Denies change in stool character, Reports constipation, Denies diarrhea, Denies nausea and Denies vomiting Denies dysuria and Denies urinary frequency Neuro Reports Normal hearing present, Denies confusion, Denies dizziness, Denies syncope and Denies weakness Psych Denies confusion Physical exam (Primary Care) Vital Signs: Last Vital Signs Pulse 66 07/18/24 09:16 BP 120/78 07/18/24 09:16 Pulse Ox 99 07/18/24 09:16 Oxygen Delivery Method Room Air 07/18/24 09:16 BMI result Body Mass Index 30.0 Tobacco/Smoking Status: Tobacco use Status Tobacco use date assessed 07/18/24 07/18/24 09:22 Patient Tobacco Use Status Current everyday Tobacco ( 07/18/24 09:26 chewing tobacco) e-Cigarette/Vaping Use Never Used 07/18/24 09:26 PHQ-9: PHQ-9 Score PHQ-9: Total score 1 07/18/24 09:46 Depression Screening Interpretation: Positive Thrive Assessment: Date of Thrive Assessment Date Thrive assessed 07/18/24 07/18/24 09:22 Currently or been in a relationship where the following occur: No concerns reported Const General: No confusion Orientation/consciousness: No confusion HENMT Head: Yes normocephalic Ears: external ears normal and TM's normal bilaterally Face and sinus: Yes normal facial exam Mouth: moist mucous membranes Throat: Yes tonsils normal Eyes Conjunctivae: conjunctivae normal Pupils: Equal, round and reactive pupils present and Pupil accommodation reflex normal Direct Ophthalmoscopy: normal light reflex Neck Neck: No lymphadenopathy Thyroid: Thyroid normal Chest Chest palpation & inspection: normal inspection of the chest Resp Effort & Inspection: normal respiratory effort and no audible wheezes Auscultation: clear to auscultation bilaterally, no crackles, no wheezes and lung sounds not diminished Cardio Rate: regular rate Rhythm: regular rhythm Peripheral pulses: radial pulses present and dorsalis pedis present GI Other: guaiac negative prostate N Palpation (GI): no masses Auscultation: normal bowel sounds and normoactive bowel sounds Male General Exam: Yes normal external exam Skin General skin exam: no rashes or lesions noted Rashes: no rashes Neuro General: No confusion Cranial nerves: Yes Equal, round and reactive pupils present and Yes Normal hearing present Cognition (Neuro): normal cognition Gait exam (Neuro): Normal gait present Motor exam (neuro): 5/5 motor strength present throughout Deep tendon reflexes (DTR's): Right brachioradialis reflex intensity grade: 2+, Left brachioradialis reflex intensity grade: 2+, Right patellar reflex intensity grade: 2+ and Left patellar reflex intensity grade: 2+ Extrem General: No edema Ankle/foot/toe images: 2 1. 2 by 4 cm irregular scaly rash with skin ulcerations Office Procedures Flu Questionnaire Does the patient have a severe egg allergy?: No Does the patient have severe life threatening allergies?: No Does the patient have a fever or illness today?: No Has the patient ever had Guillain-[place] Syndrome?: No Has the patient ever had any past reaction to a flu shot?: No Immunizations Fluarix Triv [id number] (PF) 45 mcg (15 mcg x 3)/0.5 mL IM syringe Performing Provider: Alejo Pineda MD [facility] Administered by: Jacqueline Irwin LPN on 07/18/24 09:46 2 Dose Route Admin Location Dispensed Lot Number Expiration Date NDC [employer] Education [employer] 0.5 mL IM Left Deltoid 0.5 mL [id number] 04/03/25 [id number] [employer] 2 VIS Given Date VIS Provided VIS Publication Date 07/18/24 Single Vaccine 21 Eligibility Eligibility Date Funding Source Not [facility] Eligible 07/18/24 Private Coding Level of Care Code Est Pt Prev Care 40-64y(71358) Diagnoses Annual physical exam Z00.00 Obesity (BMI 30.0-34.9) E66.9 Pharyngoesophageal dysphagia R13.14 Dysphagia type: pharyngoesophageal phase Chronic low back pain, unspecified back pain laterality, unspecified whether sciatica present M54.50; G89.29 Back pain laterality: unspecified Chronicity: chronic Sciatica presence: unspecified whether sciatica present Chews tobacco Z72.0 Impaired glucose tolerance R73.02 Intrinsic eczema L20.84 Eczema type: intrinsic Assessment & Plan Assessment & Plan (1) Annual physical exam: Code(s): Z00.00 - Encounter for general adult medical examination without abnormal findings Category: Medical Plan: Patient is advised to eat healthy, keep well hydrated, keep active and have adequate sleep. (2) Obesity (BMI 30.0-34.9): Code(s): E66.9 - Obesity, unspecified Category: Medical Plan: Diet and exercise (3) Dysphagia: Code(s): R13.10 - Dysphagia, unspecified Category: Medical Qualifiers: Dysphagia type: pharyngoesophageal phase Qualified Code(s): R13.14 - Dysphagia, pharyngoesophageal phase Plan: Resolved (4) Low back pain: Code(s): M54.50 - Low back pain, unspecified Category: Medical Qualifiers: Back pain laterality: unspecified Chronicity: chronic Sciatica presence: unspecified whether sciatica present Qualified Code(s): M54.50 - Low back pain, unspecified; G89.29 - Other chronic pain Plan: X-ray done showing mild spondylosis (5) Chews tobacco: Code(s): Z72.0 - Tobacco use Category: Social Hx Plan: Patient is strongly advised to stop! (6) Impaired glucose tolerance: Code(s): R73.02 - Impaired glucose tolerance (oral) Category: Medical Plan: Decrease the amount of carbohydrate intake, pasta, bread, rice and potatoes are all sugar and that is aside from all the sweet stuff, remember that fruits are good but they are Sweet also. (7) Eczema: Code(s): L30.9 - Dermatitis, unspecified Category: Medical Qualifiers: Eczema type: intrinsic Qualified Code(s): L20.84 - Intrinsic (allergic) eczema Plan: Steroid cream sent in. And discussed about the nature of eczema. Will also get notes from Dermatology. Orders: Orders 2 Free T4 (Free Thyroxine) Today R73.02 - Impaired glucose tolerance (oral) Thyroid Stimulating Hormone Today R73.02 - Impaired glucose tolerance (oral) Lipid Panel Today E78.00 - Pure hypercholesterolemia, unspecified, R73.02 - Impaired glucose tolerance (oral) Influenza [id number] Immunization Today Z23 - Encounter for immunization Complete Blood Count Auto Diff Today R73.02 - Impaired glucose tolerance (oral) Comprehensive Met. Panel Today R73.02 - Impaired glucose tolerance (oral) Vitamin B12 and Folate Today R73.02 - Impaired glucose tolerance (oral) Hemoglobin A1c Today R73.02 - Impaired glucose tolerance (oral) Prostate Specific Antigen Scr Today R73.02 - Impaired glucose tolerance (oral) Medications: New 2 triamcinolone acetonide 0.5% 1 appl topical BID 30 grams 0RF L30.9 - Dermatitis, unspecified
[2024-07-18 09:16] VITALS: BP 120/78; PULSE 66; O2SAT 99
== END 2024-07-18 09:46 | disposition home or self-care (01) ==
PROVIDERS: PCP Internal Medicine; Visit Provider Internal Medicine
DX: Z00.00 Encounter for general adult medical examination without abnormal findings (principal); R13.14 Dysphagia, pharyngoesophageal phase; E66.811 Obesity, class 1; Z68.30 Body mass index [BMI] 30.0-30.9, adult; M54.50 Low back pain, unspecified; G89.29 Other chronic pain; Z72.0 Tobacco use; R73.02 Impaired glucose tolerance (oral); L20.84 Intrinsic (allergic) eczema

== ENCOUNTER 2025-07-21 09:02 | Outpatient (AMB) | payer OTHER, SELFPAY ==
--- NOTE | 2025-07-21 09:08 | MHC.PC.OV ---
Vital Signs 07/21/25 09:10 Height 5 ft 8 in Weight 192 lb 4 oz BMI 29.2 BP 120/70 Blood Pressure Location Lt brachial Position Sitting Pulse 58 Pulse Source Pulse Oximeter Temp 97.1 F Temp Source Temporal Artery Scan Pulse Oximetry (%) 98 Oxygen Delivery Method Room Air Intake Visit Reasons: ANNUAL Intake Note: Patient is here today for a physical. Language Assistant Required: No Shipping Specialist: Not Required per policy Accompanied by: Self / Same As Patient Allergies No Known Allergies Allergy (Verified 07/21/25 09:09) Medication List - Last Reconciled 07/21/25 by Alejo Pineda MD ibuprofen (Advil) 200 mg PO Q6H PRN [id number] mcg (Centrum Silver Men) 1 tab PO DAILY triamcinolone acetonide 0.5% 1 appl topical BID Tobacco use date assessed: 07/21/25 Dental Screening Dental Screen Date: 07/21/25 Did you have a dental visit in the last 12 months?: No Did you have a dental problem in the last 6 months where you did not have access to dental care?: No Was dental information given to patient?: Patient has dentist [facility] Medical History (Updated 07/21/25 @ 09:44 by Alejo Pineda MD) Obesity (BMI 30.0-34.9) Colon cancer screening Right knee pain Surgical History Hx of colonoscopy Collar bone fracture History of surgery Family History Paternal Uncle Myocardial infarct Social History Housing: House Alcohol intake: current Comment: QD 3-4 drinks a day Patient Tobacco Use Status: Current everyday Tobacco user (chewing tobacco) Years Smoked: chews tobacco e-Cigarette/Vaping Use: Never Used Second Hand Smoke Exposure: No service: No Current occupational status: employed Cognitive needs: No Hearing needs: No Vision needs: Yes (Glasses) Questionnaire PHQ-9 Over the last 2 weeks, how often have you been bothered by any of the following problems? 1. Little interest or pleasure in doing things: not at all 2. Feeling down, depressed, or hopeless: not at all 3. Trouble falling or staying asleep, or sleeping too much: not at all 4. Feeling tired or having little energy: not at all 5. Poor appetite or overeating: not at all 6. Feeling bad about yourself - or that you are a failure or have let yourself or your family down: not at all 7. Trouble concentrating on things, such as reading the newspaper or watching television: not at all 8. Moving or speaking so slowly that other people could have noticed. Or the opposite - being so fidgety or restless that you have been moving around a lot more than usual: not at all 9. Thoughts that you would be better off or of hurting yourself in some way: not at all Total score: 0 Depression Screening Interpretation: Negative Depression Screening Done: Yes Source: Developed by Drs. Salas Quintero, Victoria Israel, Alhaji Espinoza and colleagues, with an educational mathieu from [employer] Thrive Questionnaire Date Thrive assessed: 07/21/25 I am a: Patient What is your living situation today?: I have a steady place to live Within the past 12 months, did the food you bought not last and you didn't have the money to get more?: Never true Within the past 12 months, did you worry whether your food would run out before you got money to buy more?: Never true Do you have trouble paying for medicines?: No Do you have trouble getting transportation to medical appointments?: No Do you have trouble paying your heating and electricity bill?: No Do you have trouble taking care of your child, family member or friend?: No Do you have trouble with day-to-day activities such as bathing, preparing meals, shopping, managing finances, etc.?: No Are you currently unemployed and looking for a job?: No Are you interested in more education?: No Please select the resources that you would like help with: None Currently or been in a relationship where the following occur: No concerns reported THRIVE Score: 0 AUDIT C Alcohol Use Questionnaire (AUDIT-C) 1. How often do you have a drink containing alcohol?: 2-4 times a month 2. How many drinks containing alcohol do you have on a typical day when you are drinking?: 1 or 2 Total Score: 2 TALA-7 AMB Questionnaire TALA-7 Date TALA - 7 assessed: 07/21/25 Feeling nervous, anxious, or on edge: 0 = Not at all Not being able to stop or control worryin = Not at all Worrying too much about different things: 0 = Not at all Trouble relaxin = Not at all Being so restless that it is hard to sit still: 0 = Not at all Becoming easily annoyed or irritable: 0 = Not at all Feeling afraid as if something awful might happen: 0 = Not at all Total TALA-7 score (0-4 normal; 5-9 mild; 10-14 moderate; 15-21 severe): 0 Source: Developed by Drs. Salas Quintero, Victoria Israel, Alhaji Espinoza and colleagues, with an educational mathieu from [employer] Review of Systems Const Denies poor appetite and Denies weakness Eyes Denies no additional complaints ENT Reports Normal hearing present, Denies dizziness, Denies nasal congestion, Denies tinnitus and Denies sore throat Card Denies chest pain, Denies syncope, Denies rapid heart rate and Denies dyspnea Resp Denies cough and Denies dyspnea GI Denies change in stool character, Reports constipation, Denies diarrhea, Denies nausea and Denies vomiting Denies dysuria and Denies urinary frequency Neuro Reports Normal hearing present, Denies confusion, Denies dizziness, Denies syncope and Denies weakness Psych Denies confusion Physical exam (Primary Care) Vital Signs: Last Vital Signs Temp 97.1 F 07/21/25 09:10 Pulse 58 07/21/25 09:10 BP 120/70 07/21/25 09:10 Pulse Ox 98 07/21/25 09:10 Oxygen Delivery Method Room Air 07/21/25 09:10 BMI result Body Mass Index 29.2 Tobacco/Smoking Status: Tobacco use Status Tobacco use date assessed 07/21/25 07/21/25 09:16 Patient Tobacco Use Status Current everyday Tobacco ( 07/21/25 09:16 chewing tobacco) e-Cigarette/Vaping Use Never Used 07/21/25 09:16 PHQ-9: PHQ-9 Score PHQ-9: Total score 0 07/21/25 09:56 Depression Screening Interpretation: Negative Thrive Assessment: Date of Thrive Assessment Date Thrive assessed 07/21/25 07/21/25 09:16 Currently or been in a relationship where the following occur: No concerns reported Const General: No confusion Orientation/consciousness: No confusion HENMT Head: Yes normocephalic Ears: external ears normal and TM's normal bilaterally Face and sinus: Yes normal facial exam Mouth: moist mucous membranes Throat: Yes tonsils normal Eyes Conjunctivae: conjunctivae normal Pupils: Equal, round and reactive pupils present and Pupil accommodation reflex normal Direct Ophthalmoscopy: normal light reflex Neck Neck: No lymphadenopathy Thyroid: Thyroid normal Chest Chest palpation & inspection: normal inspection of the chest Resp Effort & Inspection: normal respiratory effort and no audible wheezes Auscultation: clear to auscultation bilaterally, no crackles, no wheezes and lung sounds not diminished Cardio Rate: regular rate Rhythm: regular rhythm Peripheral pulses: radial pulses present and dorsalis pedis present GI Other: guaiac negative and prostate N Palpation (GI): no masses Auscultation: normal bowel sounds and normoactive bowel sounds Male General Exam: Yes normal external exam Skin General skin exam: no rashes or lesions noted Rashes: no rashes Neuro General: No confusion Cranial nerves: Yes Equal, round and reactive pupils present and Yes Normal hearing present Cognition (Neuro): normal cognition Gait exam (Neuro): Normal gait present Motor exam (neuro): 5/5 motor strength present throughout Deep tendon reflexes (DTR's): Right brachioradialis reflex intensity grade: 2+, Left brachioradialis reflex intensity grade: 2+, Right patellar reflex intensity grade: 2+ and Left patellar reflex intensity grade: 2+ Extrem General: No edema Office Procedures Flu Questionnaire Does the patient have a severe egg allergy?: No Does the patient have severe life threatening allergies?: No Does the patient have a fever or illness today?: No Has the patient ever had Guillain-[place] Syndrome?: No Has the patient ever had any past reaction to a flu shot?: No Immunizations Fluarix [id number] (PF) 45 mcg (15 mcg x 3)/0.5 mL IM syringe Performing Provider: Alejo Pineda MD Performing Location: [facility] [place] [facility] Administered by: ALDA Gonzales on 07/21/25 09:56 Dose Route Admin Location Dispensed Lot Number Expiration Date [facility] Instrumentation And Control Technician 0.5 mL IM Right Deltoid 0.5 mL [id number] 04/03/26 [id number] [employer] VIS Given Date VIS Provided VIS Publication Date 07/21/25 Single Vaccine 24 Eligibility Eligibility Date Funding Source Not VF Eligible 07/21/25 Private Coding Level of Care Code Est Pt Prev Care 40-64y(59868) Diagnoses Annual physical exam Z00.00 Chews tobacco Z72.0 Overweight (BMI 25.0-29.9) E66.3 Impaired glucose tolerance R73.02 Sciatic nerve pain M54.30 Assessment & Plan Assessment & Plan (1) Annual physical exam: Code(s): Z00.00 - Encounter for general adult medical examination without abnormal findings Category: Medical Plan: Patient is advised to eat healthy, keep well hydrated, keep active and have adequate sleep. (2) Chews tobacco: Code(s): Z72.0 - Tobacco use Category: Social Hx Plan: Patient is strongly advised against this (3) Overweight (BMI 25.0-29.9): Code(s): E66.3 - Overweight Category: Medical Plan: Diet and exercise (4) Impaired glucose tolerance: Code(s): R73.02 - Impaired glucose tolerance (oral) Category: Medical Plan: Decrease the amount of carbohydrate intake, pasta, bread, rice and potatoes are all sugar and that is aside from all the sweet stuff, remember that fruits are good but they are Sweet also. (5) Sciatic nerve pain: Code(s): M54.30 - Sciatica, unspecified side Category: Medical Plan: conservative treatment Plan History of Present Illness The patient is a 55-year-old male presenting for a physical examination and follow-up on previous conditions. The patient has a history of being overweight, with a recent weight loss of 5 pounds noted since the last visit. He has a history of tubular adenoma of the colon, with the last colonoscopy performed in January 2022. The patient reports experiencing sciatica, which he attributes to playing volleyball after a long hiatus. He describes the pain as originating from the buttocks and not radiating to the legs, with no recent falls or injuries reported. The patient has eczema, for which he has been prescribed clotrimazole and steroid cream by dermatology. He reports using the creams regularly, but the condition persists. The patient denies any new diagnoses or surgeries since the last visit. His last blood work in July 2024 showed normal results, including blood count, electrolytes, renal function, blood sugar, hemoglobin A1c, liver function, and cholesterol levels. He has a family history of heart attack in an uncle and a cousin with cancer. The patient consumes alcohol daily, averaging three to four drinks per day, and chews tobacco. He has been advised to reduce alcohol intake and quit tobacco use due to associated health risks. Health Maintenance - Colonoscopy follow-up scheduled in 5 years due to tubular adenoma history - Flu vaccination administered - Discussion on reducing alcohol intake and quitting tobacco use Social History - Alcohol use: Consumes three to four drinks daily - Tobacco use: Chews tobacco regularly - Physical activity: Plays volleyball, recently resumed after a long hiatus Review of Systems - General: Denies fever, nausea, vomiting - Cardiovascular: Denies chest pain, dyspnea, dizziness - Gastrointestinal: Denies heartburn, constipation, diarrhea - Genitourinary: Reports nocturia once per night - Musculoskeletal: Reports sciatica pain, denies recent falls or injuries - Dermatological: Reports persistent eczema Physical Exam General: Cooperative, healthy appearing, comfortable, no acute distress and well developed Orientation: Patient oriented x3 Limitations: No limitations Head: Normal to inspection Ears: Hearing grossly normal bilaterally Nose: Normal external nose present Face and sinus: Normal facial exam Eyes: Appearance normal, both eyes and all related structures Neck: Normal visual inspection and Yes full ROM Respiratory: Normal respiratory effort and able to speak in complete sentences. Clear to auscultation bilaterally Cardiovascular: Regular rate and rhythm. Normal S1 and S2 GI: Normal to inspection. Soft to palpation and nontender Skin: Eczema noted, steroid cream prescribed Neuro: Patient oriented x3 Extremities: Normal to inspection, sciatica noted with pain from the lower back to the legs, advised physical therapy and stretching exercises Results - Labs: Normal blood count, electrolytes, renal function, blood sugar, hemoglobin A1c, liver function, cholesterol levels Plan Patient was informed and verbally consented to the use of an ambient scribe for clinic note documentation during this visit. 1. Overweight The patient is advised to continue with weight management strategies, including diet and exercise, to further reduce weight. 2. Tubular Adenoma Of The Colon A follow-up colonoscopy is scheduled in 5 years to monitor the tubular adenoma, which was benign at the last examination. 3. Sciatica The patient is recommended to engage in stretching exercises and consider physical therapy to alleviate sciatica symptoms. 4. Eczema The patient is instructed to continue using clotrimazole and steroid cream as prescribed by dermatology. Discussion Notes During the visit, I discussed the importance of weight management and advised the patient to continue with diet and exercise. We reviewed the benign nature of the tubular adenoma and the plan for a follow-up colonoscopy in 5 years. I recommended stretching exercises and possibly physical therapy for sciatica relief. The patient was advised to continue using prescribed creams for eczema and to monitor the condition. Patient Instructions - Continue with diet and exercise to manage weight. - Schedule a follow-up colonoscopy in 5 years. - Perform stretching exercises regularly to alleviate sciatica symptoms. - Use clotrimazole and steroid cream as prescribed for eczema. Orders: Orders Comprehensive Met. Panel Today R73.02 - Impaired glucose tolerance (oral) Free T4 (Free Thyroxine) Today R73.02 - Impaired glucose tolerance (oral) Vitamin B12 and Folate Today R73.02 - Impaired glucose tolerance (oral) Complete Blood Count Auto Diff Today R73.02 - Impaired glucose tolerance (oral) Hemoglobin A1c Today R73.02 - Impaired glucose tolerance (oral) Lipid Panel Today E78.00 - Pure hypercholesterolemia, unspecified, R73.02 - Impaired glucose tolerance (oral) Thyroid Stimulating Hormone Today R73.02 - Impaired glucose tolerance (oral) Prostate Specific Antigen Scr Today R73.02 - Impaired glucose tolerance (oral) Influenza [id number] Immunization Today Z23 - Encounter for immunization
[2025-07-21 09:10] VITALS: BP 120/70; PULSE 58; TEMP 36.2; O2SAT 98; BMI 29.2
== END 2025-07-21 09:59 | disposition home or self-care (01) ==
LOC: HO.HMCH 09:03
PROVIDERS: PCP Internal Medicine; Visit Provider Internal Medicine
DX: Z00.00 Encounter for general adult medical examination without abnormal findings (principal); Z72.0 Tobacco use; E66.3 Overweight; R73.02 Impaired glucose tolerance (oral); M54.30 Sciatica, unspecified side; Z23 Encounter for immunization

== ENCOUNTER → 2025-07-21 09:02 | Outpatient (BNVA) | payer OTHER, SELFPAY | PROVIDERS: PCP Internal Medicine; Visit Provider Internal Medicine | DX: Z00.00 Encounter for general adult medical examination without abnormal findings (principal); E66.3 Overweight; R73.02 Impaired glucose tolerance (oral); M54.30 Sciatica, unspecified side; L30.9 Dermatitis, unspecified; F17.220 Nicotine dependence, chewing tobacco, uncomplicated; Z23 Encounter for immunization; Z68.29 Body mass index [BMI] 29.0-29.9, adult | CPT/HCPCS: 90471; 90656; 99396 ==

== ENCOUNTER 2025-07-29 10:27 | Outpatient (REF) | payer OTHER, SELFPAY ==
[2025-07-29 10:40] LABS: MANUAL DIFF FLAG NO
[2025-07-29 11:14] LABS: Hematocrit 44.7 % (42.0-52.0); Hemoglobin 14.8 g/dl (14.0-18.0); Imm Gran Abs Auto 0.04 X10*3/uL (0.00-0.03); Imm Gran Pct Auto 0.7 % (0.0-0.4); Lymphocytes Absolute Auto 2.2 X10*3/uL (1.2-4.9); Mean Corpuscular HGB Conc 33.1 g/dl (31.0-36.0); Mean Corpuscular Hemoglobin 28.3 pg (27.0-33.0); Mean Corpuscular Volume 85.5 fL (80.0-98.0); NRBC Abs Auto 0.000 X10*3/uL (0.0-0.012); NRBC Pct Auto 0.0 /100WBC (0.0-0.2); Platelet Count 197 X10*3/uL (160-400); Red Blood Count 5.23 X10*6/uL (4.60-5.80); White Blood Count 6.0 X10*3/uL (4.8-10.8)
[2025-07-29 12:06] LABS: Alanine Aminotransferase 26 U/L (0-40); Albumin Level 4.3 g/dL (3.5-5.0); Alkaline Phosphatase 69 U/L (39-117); Anion Gap 11 (12-20); Aspartate Amino Transferase 29 U/L (5-37); Blood Urea Nitrogen 13 mg/dL (9-16); Calcium 8.7 mg/dL (8.4-10.2); Carbon Dioxide 26 mmol/L (22-29); Chloride 110 mmol/L (96-108); Cholesterol 168 mg/dL (<200); Estimated Glomerular Filt Rate > 60; HDL Cholesterol 60 mg/dL (>40); Potassium 4.5 mmol/L (3.3-5.1); Sodium 142 mmol/L (135-145); Total Protein 7.1 g/dL (6.5-8.0); Triglycerides 79 mg/dL (<150)
[2025-07-29 12:14] LABS: Free T4 (Free Thyroxine) 0.85 ng/dL (0.71-1.85); Thyroid Stimulating Hormone 1.50 uIU/mL (0.32-4.0)
[2025-07-29 12:44] LABS: Folate 9.1 ng/mL (> or = 4.0); Vitamin B12 404 pg/mL (200-900)
== END 2025-07-29 10:28 | disposition home or self-care (01) ==
LOC: HO.LAB 10:27
PROVIDERS: PCP Internal Medicine; Visit Provider Internal Medicine
DX: R73.02 Impaired glucose tolerance (oral) (principal); E78.00 Pure hypercholesterolemia, unspecified
CPT/HCPCS: 36415; 80053; 80061; 82607; 82746; 83036; 84153; 84439; 84443; 85025